=== PATIENT | male | born 1970 | race Two or more races ===

== ENCOUNTER 2020-07-01 23:39 | Inpatient (IN) | payer OTHER ==
[~2020-07-01] VITALS: Ht 175.3 cm; Wt 119.3 kg
[2020-07-01] MEDS ORDERED: HYZAAR 50-12.51 EACH (23:54)
[2020-07-02] MEDS ORDERED: LOSARTAN-HCTZ1 EAC1 (00:11)
[2020-07-02] MEDS ORDERED: METOPROLOL TART50 MG (00:12)
[2020-07-02] MEDS ORDERED: VITAMIN D310 MCG/1 M (00:12)
[2020-07-21] MEDS ORDERED: LOSARTAN POTAS100 MG PO (13:58)
[2020-07-21] MEDS ORDERED: CIPRO500 MG PO (13:59)
[2020-07-21] MEDS ORDERED: FLAGYL500MG PO (13:59)
[2020-07-21] MEDS ORDERED: FLUCONAZOLE200 MG PO (14:00)
== END 2020-07-21 17:19 | disposition home or self-care (01) | DRG 444 ==
LOC: ER 23:39 → MEDI 07-02 09:21 → SEC-K 07-02 09:21 → SURH 07-02 14:40 → MEDI 07-02 16:21
PROVIDERS: ADMIT Internal Medicine; ATTEND Internal Medicine
PROC: 0F798ZZ Dilation of Common Bile Duct, Via Natural or Artificial Opening Endoscopic (ICD-10-PCS; principal; 2020-07-02)
PROC: BF14YZZ Fluoroscopy of Gallbladder, Bile Ducts and Pancreatic Ducts using Other Contrast (ICD-10-PCS; 2020-07-02)
PROC: BW21ZZZ Computerized Tomography (CT Scan) of Abdomen and Pelvis (ICD-10-PCS; 2020-07-02)
PROC: BF37YZZ Magnetic Resonance Imaging (MRI) of Pancreas using Other Contrast (ICD-10-PCS; 2020-07-02)
PROC: BF37YZZ Magnetic Resonance Imaging (MRI) of Pancreas using Other Contrast (ICD-10-PCS; 2020-07-04)
PROC: 02HV33Z Insertion of Infusion Device into Superior Vena Cava, Percutaneous Approach (ICD-10-PCS; 2020-07-09)
PROC: B54MZZZ Ultrasonography of Right Upper Extremity Veins (ICD-10-PCS; 2020-07-10)
PROC: 0F9430Z Drainage of Gallbladder with Drainage Device, Percutaneous Approach (ICD-10-PCS; 2020-07-11)
PROC: 4A12X4Z Monitoring of Cardiac Electrical Activity, External Approach (ICD-10-PCS; 2020-07-14)
DX: K80.43 Calculus of bile duct with acute cholecystitis with obstruction (principal); K85.10 Biliary acute pancreatitis without necrosis or infection; K80.00 Calculus of gallbladder with acute cholecystitis without obstruction; B96.1 Klebsiella pneumoniae [K. pneumoniae] as the cause of diseases classified elsewhere; I10 Essential (primary) hypertension; R73.9 Hyperglycemia, unspecified; E87.6 Hypokalemia; E66.9 Obesity, unspecified; Z20.822 Contact with and (suspected) exposure to COVID-19